=== PATIENT | male | born 1990 | race Caucasian/White ===

== ENCOUNTER 2017-07-31 16:09 | Emergency (ER) | payer OTHER ==
--- NOTE | 2017-07-31 16:32 | ERPHSYRPT ---
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 Pt is concerned of transmitting a communicable disease. Pt has no symptoms. Timing/Duration: today Associated Symptoms: denies symptoms - Review of Systems Constitutional: No Fever, No Chills Eyes: No Symptoms Ears, Nose, & Throat: No Symptoms Respiratory: No Cough, No Dyspnea Cardiac: No Chest Pain, No Edema, No Syncope Abdominal/Gastrointestinal: No Abdominal Pain, No Nausea, No Vomiting, No Diarrhea Genitourinary Symptoms: No Dysuria Musculoskeletal: No Back Pain, No Neck Pain Skin: No Rash Neurological: No Dizziness, No Focal Weakness, No Sensory Changes Psychological: No Symptoms Endocrine: No Symptoms All Other Systems: Reviewed and Negative - Physical Exam General Appearance: no apparent distress, alert Eye Exam: PERRL/EOMI, eyes nml inspection Ears, Nose, Throat Exam: normal ENT inspection, TMs normal, pharynx normal, moist mucous membranes Neck Exam: normal inspection, non-tender, supple, full range of motion Respiratory Exam: normal breath sounds, lungs clear, No respiratory distress Cardiovascular Exam: regular rate/rhythm, normal heart sounds, normal peripheral pulses Gastrointestinal/Abdomen Exam: soft, normal bowel sounds, No tenderness, No mass Back Exam: normal inspection, normal range of motion, No CVA tenderness, No vertebral tenderness Extremity Exam: normal inspection, normal range of motion, pelvis stable Neurologic Exam: alert, oriented x 3, cooperative, normal mood/affect, nml cerebellar function, nml station & gait, sensation nml, No motor deficits Skin Exam: normal color, warm, dry, No rash Lymphatic Exam: No adenopathy - Course Nursing assessment & vital signs reviewed: Yes - Progress Progress: unchanged Progress Note: 07/31/17 16:29 Pt will have HIV and hepatitis panel drawn. Pt will not be given any post exposure medications. - Departure Time of Disposition: 16:30 Departure Disposition: Home Clinical Impression: History of exposure to respiratory irritant Condition: Stable Critical Care Time: No Referrals: ANTONIO OSEI [Primary Care Provider] - Instructions: Blood or Body Fluid Exposure Additional Instructions: We will call you with the results of the post exposure labs. Return to the ER if you should have any fever, chills, cough or congestion.
[2017-07-31 16:33] VITALS: BP 138/91; PULSE 116; O2SAT 96
[2017-08-02 20:31] LABS: Hepatitis B Surface Ab.Quant >1000.00 mIU/mL (0.00-8.49); Hepatitis C Antibody by EIA Non Reactive (Non Reactive)
[2017-08-02 20:32] LABS: Hepatitis B Sur Ag Screen Non Reactive (Non Reactive)
== END 2017-07-31 16:50 | disposition home or self-care (01) ==
LOC: ED 16:09
DX: Z77.21 Contact with and (suspected) exposure to potentially hazardous body fluids (principal); X58.XXXA Exposure to other specified factors, initial encounter; Y99.0 Civilian activity done for income or pay
CPT/HCPCS: 36415; 86317; 86701; 86702; 86803; 87340; 87389; 99282